=== PATIENT | female | born 1955 | race Asian ===

== ENCOUNTER 2024-01-18 17:11 | Emergency (ER) | payer OTHER, MEDICARE ==
[~2024-01-18] VITALS: Ht 154.9 cm; Wt 62.6 kg
[2024-01-18 17:19] VITALS: BP_SYST 159; PULSE 81; RESP 16; TEMP 98.7; O2SAT 97
[2024-01-18 20:15] VITALS: BP_SYST 148; PULSE 88; RESP 16; TEMP 98.7; O2SAT 97
== END 2024-01-18 20:15 | disposition home or self-care (01) ==
LOC: SED 17:11
DX: M54.50 Low back pain, unspecified (principal); R07.89 Other chest pain; Z88.1 Allergy status to other antibiotic agents; Z88.5 Allergy status to narcotic agent; Z88.6 Allergy status to analgesic agent; Z88.8 Allergy status to other drugs, medicaments and biological substances; V89.2XXA Person injured in unspecified motor-vehicle accident, traffic, initial encounter; Y93.89 Activity, other specified; Y92.89 Other specified places as the place of occurrence of the external cause; Y99.8 Other external cause status
CPT/HCPCS: 71046; 72131; 99284